=== PATIENT | female | born 1945 | race Caucasian/White ===

== ENCOUNTER 2023-07-17 15:19 | Inpatient (IN) | payer MEDICARE ==
[~2023-07-17] VITALS: Ht 167.6 cm; Wt 65.1 kg
--- NOTE | 2023-07-17 17:23 | NUR ---
pt alert and oriented, able to make needs known. Ventilating well on RA. Denies pain. Aware of hospital admission.
--- NOTE | 2023-07-17 17:36 | NUR ---
Med rec complete, pt does not take any home medications.
[2023-07-17 17:37] LABS: BASOPHILS % (AUTO) 0.2 % (0-1); EOSINOPHILS # (AUTO) 0.1 X10'3 (0-0.9); EOSINOPHILS % (AUTO) 0.6 % (0-6); HEMATOCRIT 34.6 % (35.0-45.0); HEMOGLOBIN 11.7 g/dl (12.0-16.0); LYMPHOCYTES # (AUTO) 0.6 X10'3 (1.1-4.8); MEAN CORPUSCULAR HEMOGLOBIN 31.5 PG (27.0-31.0); MEAN CORPUSCULAR HGB CONC 33.9 g/dL (33.0-36.5); MEAN CORPUSCULAR VOLUME 92.8 FL (78-98); MEAN PLATELET VOLUME 8.5 FL (7.4-10.4); MONOCYTES # (AUTO) 0.4 X10'3 (0-0.9); MONOCYTES % (AUTO) 3.7 % (2-12); NEUTROPHILS # (AUTO) 8.4 X10'3 (1.8-7.7); NEUTROPHILS % (AUTO) 89.5 % (42-75); PLATELET COUNT 218 X10'3 (140-440); RED BLOOD COUNT 3.73 X10'6 (4.20-5.60); WHITE BLOOD COUNT 9.4 X10'3 (4.5-11.0)
[2023-07-17 17:39] LABS: ALANINE AMINOTRANSFERASE 14 U/L (12-78); ALBUMIN/GLOBULIN RATIO 1.2 (1.1-1.5); ALKALINE PHOSPHATASE 61 IU/L (46-116); ANION GAP 8 (8-16); ASPARTATE AMINO TRANSFERASE 21 U/L (10-37); BILIRUBIN,TOTAL 0.5 MG/DL (0.1-1.0); BLOOD UREA NITROGEN 22 MG/DL (7-18); CALCIUM 9.1 MG/DL (8.5-10.1); CHLORIDE 101 MMOL/L (99-107); CREATININE 0.88 MG/DL (0.40-0.90); GLUCOSE 119 MG/DL (70-104); POTASSIUM 3.8 MMOL/L (3.5-5.1); SODIUM 135 MMOL/L (135-145); TOTAL CARBON DIOXIDE 26.2 MMOL/L (24-32); TOTAL PROTEIN 7.4 G/DL (6.4-8.2); eCRCL 45 ML/MIN; eGFR 62 ML/MIN
[2023-07-17 17:42] LABS: MAGNESIUM 1.9 MG/DL (1.5-2.4)
[2023-07-17] MEDS ORDERED: magnesium 4gm in 100ml NS 100 ML IV PRN (17:55)
[2023-07-17] MEDS ORDERED: potassium Cl 20 mEq SR tablet PO PRN ×2 (17:55)
[2023-07-17] MEDS ORDERED: HYDROcodone/acetaminophen 5mg/325mg tablet PO PRN (17:55)
[2023-07-17] MEDS ORDERED: magnesium Cl slow-release 64mg tablet PO PRN (17:55)
[2023-07-17] MEDS ORDERED: potassium Cl 40MEQ/1/2NS 520ml 520 ML IV PRN (17:55)
[2023-07-17] MEDS ORDERED: acetaminophen 325mg tablet PO PRN ×2 (17:55)
[2023-07-17] MEDS ORDERED: ondansetron/PF 4mg/2ml inj IV PRN (17:55)
[2023-07-17] MEDS ORDERED: magnesium 2GM in 50ml NS 50 ML IV PRN (17:55)
[2023-07-17] MEDS ORDERED: lisinopril 10 MG tablet PO ONE (17:55)
[2023-07-17] MEDS ORDERED: morphine 2 MG/ML inj. syringe IV PRN (17:55)
[2023-07-17] MEDS ORDERED: HYDROcodone/acetaminophen 10/325mg tab PO PRN (17:55)
[2023-07-17 18:01] LABS: APTT 30 SECONDS (22-32); PROTHROMBIN TIME 10.9 SECONDS (9.0-12.0)
[2023-07-17] MEDS ORDERED: lisinopril 5mg tablet PO ONE (18:05)
[2023-07-17] MEDS: normal saline 1000ml 1,000 ML IV SCH (18:08)
[2023-07-17] MEDS ORDERED: NO HOME MEDS (18:34)
[2023-07-17] MEDS: enoxaparin 40mg/0.4ml syringe SQ SCH (19:57)
[2023-07-17] MEDS ORDERED: temazepam 15mg capsule PO PRN (21:00)
--- NOTE | 2023-07-18 00:13 | NUR ---
patient placed on hospital bed for comfort.
[2023-07-18] MEDS: morphine 2 MG/ML inj. syringe IV PRN ×3 (00:19→16:44)
--- NOTE | 2023-07-18 01:30 | NUR ---
Patient in room ORTHO 4020. I have received report from VERONICA Cruz RN and had the opportunity to ask questions and assume patient care.
--- NOTE | 2023-07-18 01:45 | NUR ---
pt brought to floor via hospital bed accompanied by er staff. oriented pt to room and call light and educated pt to use call light when needing to use restroom or for other needs.
[2023-07-18 01:59] VITALS: BP 108/55; PULSE 79; RESP 15; TEMP 98.5; O2SAT 97
[2023-07-18 06:00] VITALS: BP 101/62; PULSE 75; RESP 16; TEMP 98.4; O2SAT 98
[2023-07-18 06:37] LABS: BASOPHILS % (AUTO) 0.5 % (0-1); EOSINOPHILS # (AUTO) 0.2 X10'3 (0-0.9); EOSINOPHILS % (AUTO) 3.1 % (0-6); HEMATOCRIT 29.7 % (35.0-45.0); HEMOGLOBIN 10.1 g/dl (12.0-16.0); LYMPHOCYTES # (AUTO) 0.9 X10'3 (1.1-4.8); LYMPHOCYTES % (AUTO) 14.6 % (21-51); MEAN CORPUSCULAR HEMOGLOBIN 31.6 PG (27.0-31.0); MEAN CORPUSCULAR HGB CONC 33.9 g/dL (33.0-36.5); MEAN PLATELET VOLUME 9.2 FL (7.4-10.4); MONOCYTES # (AUTO) 0.6 X10'3 (0-0.9); MONOCYTES % (AUTO) 9.4 % (2-12); NEUTROPHILS # (AUTO) 4.3 X10'3 (1.8-7.7); NEUTROPHILS % (AUTO) 72.4 % (42-75); PLATELET COUNT 203 X10'3 (140-440); RED BLOOD COUNT 3.19 X10'6 (4.20-5.60); RED CELL DISTRIBUTION WIDTH 13.7 % (11.5-14.5)
[2023-07-18 06:38] LABS: ALANINE AMINOTRANSFERASE 14 U/L (12-78); ALBUMIN 3.4 G/DL (3.4-5.0); ALBUMIN/GLOBULIN RATIO 1.2 (1.1-1.5); ALKALINE PHOSPHATASE 50 IU/L (46-116); ANION GAP 9 (8-16); ASPARTATE AMINO TRANSFERASE 18 U/L (10-37); BILIRUBIN,TOTAL 0.8 MG/DL (0.1-1.0); BLOOD UREA NITROGEN 19 MG/DL (7-18); BUN/CREATININE RATIO 22.9 (10.0-20.0); CALCIUM 8.4 MG/DL (8.5-10.1); CHLORIDE 103 MMOL/L (99-107); CREATININE 0.83 MG/DL (0.40-0.90); GLUCOSE 107 MG/DL (70-104); POTASSIUM 3.4 MMOL/L (3.5-5.1); SODIUM 137 MMOL/L (135-145); TOTAL CARBON DIOXIDE 25.5 MMOL/L (24-32); TOTAL PROTEIN 6.3 G/DL (6.4-8.2); eCRCL 48 ML/MIN; eGFR 66 ML/MIN
--- NOTE | 2023-07-18 06:48 | NUR ---
Problems reprioritized. Patient report given, questions answered & plan of care reviewed with MALKA Jackson.
[2023-07-18 08:00] VITALS: RESP 15; O2SAT 97
--- NOTE | 2023-07-18 10:40 | NUR ---
PAGER ID: [phone] MESSAGE: Chelo Joritj [id number] Pt. states pain is not controlled for her leg fracture. Can she have .5-1mg dilaudid instead of MS? Renetta [id number]
[2023-07-18] MEDS ORDERED: morphine 2 MG/ML inj. syringe IV PRN ×2 (11:05→11:55)
[2023-07-18] MEDS ORDERED: HYDROcodone/acetaminophen 5mg/325mg tablet PO PRN (11:05)
[2023-07-18] MEDS ORDERED: hydrALAZINE 20mg/ml inj. IV PRN (11:55)
[2023-07-18] MEDS ORDERED: enalaprilat dihydrate 2.5mg/2ml vial IV PRN (11:55)
[2023-07-18] MEDS ORDERED: ringers solution, lacted 1,000 ML IV ONE (11:55)
[2023-07-18] MEDS ORDERED: fentaNYL/PF 50MCG/1 ML 2ML syringe IV PRN ×2 (11:55)
[2023-07-18] MEDS ORDERED: morphine 4 MG/ML inj SYRINge IV PRN (11:55)
[2023-07-18] MEDS ORDERED: ondansetron/PF 4mg/2ml inj IV PRN (11:55)
[2023-07-18] MEDS ORDERED: ringers solution, lacted 1,000 ML IV SCH (11:55)
[2023-07-18] MEDS: HYDROcodone/acetaminophen 10/325mg tab PO PRN (12:23)
--- NOTE | 2023-07-18 12:31 | NUR ---
Paged for ekg
[2023-07-18] MEDS ORDERED: magnesium Cl slow-release 64mg tablet PO PRN (12:45)
[2023-07-18] MEDS ORDERED: potassium Cl 20 mEq SR tablet PO PRN ×2 (12:45)
[2023-07-18] MEDS ORDERED: potassium Cl 40MEQ/1/2NS 520ml 520 ML IV PRN (12:45)
--- NOTE | 2023-07-18 14:03 | NUR ---
Updated son. He would like update after surgery as well.
[2023-07-18 14:27] LABS: MAGNESIUM 1.9 MG/DL (1.5-2.4)
--- NOTE | 2023-07-18 18:07 | NUR ---
Gave report to Geo ACE
[2023-07-18 18:30] VITALS: BP 137/81; PULSE 72; RESP 16; TEMP 98.5; O2SAT 96
[2023-07-18 18:40] VITALS: RESP 16; O2SAT 96
[2023-07-18] MEDS: K and/or MAG REPLACEMENT MC SCH (20:00)
[2023-07-18] MEDS: enoxaparin 40mg/0.4ml syringe SQ SCH (20:11)
[2023-07-18] MEDS: normal saline 1000ml 1,000 ML IV SCH (22:46)
[2023-07-19] VITALS (29 sets, daily range): BP systolic 105–177; BP diastolic 46–93; PULSE 83–98; RESP 14–21; TEMP 97.3–98.8; O2SAT 93–100
[2023-07-19] MEDS: normal saline 1000ml 1,000 ML IV SCH ×3 (00:10→20:45)
[2023-07-19] MEDS: morphine 2 MG/ML inj. syringe IV PRN (04:26)
[2023-07-19] MEDS ORDERED: morphine 2 MG/ML inj. syringe IV ONE (04:45)
[2023-07-19] MEDS ORDERED: famotidine 20mg tablet PO ONE (06:00)
--- NOTE | 2023-07-19 06:24 | NUR ---
Problems reprioritized. Patient report given, questions answered & plan of care reviewed with IRINEO. Addendum: 07/19/23 at 0624 by Maik Ho RN Amended: Links added.
[2023-07-19 07:21] LABS: BASOPHILS % (AUTO) 0.3 % (0-1); EOSINOPHILS % (AUTO) 0.5 % (0-6); HEMOGLOBIN 9.7 g/dl (12.0-16.0); LYMPHOCYTES # (AUTO) 0.7 X10'3 (1.1-4.8); LYMPHOCYTES % (AUTO) 9.5 % (21-51); MEAN CORPUSCULAR HEMOGLOBIN 31.3 PG (27.0-31.0); MEAN CORPUSCULAR HGB CONC 33.4 g/dL (33.0-36.5); MEAN CORPUSCULAR VOLUME 93.7 FL (78-98); MEAN PLATELET VOLUME 8.5 FL (7.4-10.4); MONOCYTES # (AUTO) 0.8 X10'3 (0-0.9); MONOCYTES % (AUTO) 10.9 % (2-12); NEUTROPHILS # (AUTO) 5.8 X10'3 (1.8-7.7); NEUTROPHILS % (AUTO) 78.8 % (42-75); PLATELET COUNT 193 X10'3 (140-440); RED CELL DISTRIBUTION WIDTH 13.4 % (11.5-14.5); WHITE BLOOD COUNT 7.3 X10'3 (4.5-11.0)
[2023-07-19 07:37] LABS: ALANINE AMINOTRANSFERASE 13 U/L (12-78); ALBUMIN 3.1 G/DL (3.4-5.0); ALBUMIN/GLOBULIN RATIO 0.9 (1.1-1.5); ALKALINE PHOSPHATASE 49 IU/L (46-116); ANION GAP 6 (8-16); ASPARTATE AMINO TRANSFERASE 21 U/L (10-37); BLOOD UREA NITROGEN 12 MG/DL (7-18); BUN/CREATININE RATIO 18.2 (10.0-20.0); CALCIUM 8.3 MG/DL (8.5-10.1); CHLORIDE 100 MMOL/L (99-107); CREATININE 0.66 MG/DL (0.40-0.90); GLUCOSE 118 MG/DL (70-104); MAGNESIUM 1.7 MG/DL (1.5-2.4); POTASSIUM 3.9 MMOL/L (3.5-5.1); SODIUM 131 MMOL/L (135-145); TOTAL CARBON DIOXIDE 25.3 MMOL/L (24-32); TOTAL PROTEIN 6.4 G/DL (6.4-8.2); eCRCL 64 ML/MIN; eGFR 86 ML/MIN
[2023-07-19] MEDS: K and/or MAG REPLACEMENT MC SCH ×2 (08:00→20:00)
[2023-07-19] MEDS ORDERED: ePHEDrine 50MG/ML INJ. ONE (10:38)
[2023-07-19] MEDS ORDERED: fentaNYL/PF 50MCG/1 ML 2ML syringe ONE (10:40)
[2023-07-19] MEDS ORDERED: ringers solution, lacted 1,000 ML IV SCH (10:40)
[2023-07-19] MEDS ORDERED: proCHLORperazine 10 MG/2 ml inj IV PRN (10:40)
[2023-07-19] MEDS ORDERED: morphine 4 MG/ML inj SYRINge IV PRN (10:40)
[2023-07-19] MEDS ORDERED: ondansetron/PF 4mg/2ml inj IV PRN (10:40)
[2023-07-19] MEDS ORDERED: meperidine/PF 25mg/ml syringe IV PRN ×3 (10:40)
[2023-07-19] MEDS ORDERED: morphine 2 MG/ML inj. syringe IV PRN (10:40)
[2023-07-19] MEDS ORDERED: midazolam 1 mg/ML 2ml injection ONE (10:40)
[2023-07-19] MEDS ORDERED: ceFAZolin 1000mg inj ONE ×2 (11:00)
--- NOTE | 2023-07-19 11:53 | NUR ---
Received from OR via ORTHO BED , accompanied by Anesthesiologist DONNA and report given by Anesthesiolgist. PATIENT WITH 20G PIV IN LEFT FOREARM RUNNING LR AT 100. PATIENT VSS. DENIES PAIN AT THIS TIME. PATIENT WITH SCDS ON AND PATIENT WITHOUT COMPLIAINT AT THIS TIME. WILL CONTINUE TO ASSESS AND TREAT NEEDED. Addendum: 07/19/23 at 1255 by Giovani Barry RN, RN Amended: Links added.
--- NOTE | 2023-07-19 13:53 | NUR ---
Report called to receiving nurse. PT REMAINS COMFORTABLE, TOLERATING ORAL FLUIDS AND ICE CHIPS. Transferred via BED, NO Belongings. BLL, CALL LIGHT GIVEN, SIDE RAILS UP, NURSES AID IN ROOM W/PT. Special Issues communicated to receiving nurse. YES. Addendum: 07/19/23 at 1450 by Jayshree Hayward RN Amended: Links added.
[2023-07-19] MEDS: ceFAZolin/D5W- 1GM premix 50 ML IV SCH (15:35)
--- NOTE | 2023-07-19 18:26 | NUR ---
Problems reprioritized. Patient report given, questions answered & plan of care reviewed with Jazz ACE.
[2023-07-19] MEDS: enoxaparin 40mg/0.4ml syringe SQ SCH (20:29)
[2023-07-19] MEDS: HYDROcodone/acetaminophen 10/325mg tab PO PRN (20:30)
[2023-07-20] MEDS: ceFAZolin/D5W- 1GM premix 50 ML IV SCH ×2 (00:33→07:09)
[2023-07-20 02:00] VITALS: BP 134/66; PULSE 88; RESP 14; TEMP 97.6; O2SAT 99
[2023-07-20 06:00] VITALS: BP 153/73; PULSE 88; RESP 14; TEMP 97.1; O2SAT 99
--- NOTE | 2023-07-20 06:45 | NUR ---
Problems reprioritized. Patient report given, questions answered & plan of care reviewed with LAVERNE Medina.
[2023-07-20] MEDS: normal saline 1000ml 1,000 ML IV SCH (07:13)
[2023-07-20 07:18] LABS: BASOPHILS % (AUTO) 0.1 % (0-1); EOSINOPHILS % (AUTO) 0 % (0-6); HEMATOCRIT 26.6 % (35.0-45.0); LYMPHOCYTES # (AUTO) 0.6 X10'3 (1.1-4.8); LYMPHOCYTES % (AUTO) 5.9 % (21-51); MEAN CORPUSCULAR HEMOGLOBIN 31.3 PG (27.0-31.0); MEAN CORPUSCULAR HGB CONC 33.7 g/dL (33.0-36.5); MEAN CORPUSCULAR VOLUME 92.7 FL (78-98); MEAN PLATELET VOLUME 8.6 FL (7.4-10.4); MONOCYTES % (AUTO) 10.4 % (2-12); NEUTROPHILS # (AUTO) 8.1 X10'3 (1.8-7.7); NEUTROPHILS % (AUTO) 83.6 % (42-75); PLATELET COUNT 198 X10'3 (140-440); RED BLOOD COUNT 2.87 X10'6 (4.20-5.60); RED CELL DISTRIBUTION WIDTH 13.1 % (11.5-14.5); WHITE BLOOD COUNT 9.7 X10'3 (4.5-11.0)
[2023-07-20] MEDS: HYDROcodone/acetaminophen 10/325mg tab PO PRN ×2 (07:30→15:38)
[2023-07-20 07:42] LABS: ALANINE AMINOTRANSFERASE 15 U/L (12-78); ALBUMIN 2.6 G/DL (3.4-5.0); ALBUMIN/GLOBULIN RATIO 0.7 (1.1-1.5); ALKALINE PHOSPHATASE 48 IU/L (46-116); ANION GAP 8 (8-16); ASPARTATE AMINO TRANSFERASE 23 U/L (10-37); BILIRUBIN,TOTAL 0.7 MG/DL (0.1-1.0); BLOOD UREA NITROGEN 10 MG/DL (7-18); BUN/CREATININE RATIO 18.2 (10.0-20.0); CHLORIDE 98 MMOL/L (99-107); CREATININE 0.55 MG/DL (0.40-0.90); GLUCOSE 145 MG/DL (70-104); MAGNESIUM 1.7 MG/DL (1.5-2.4); POTASSIUM 3.4 MMOL/L (3.5-5.1); SODIUM 130 MMOL/L (135-145); TOTAL CARBON DIOXIDE 24.2 MMOL/L (24-32); TOTAL PROTEIN 6.1 G/DL (6.4-8.2); eCRCL 76 ML/MIN; eGFR > 90 ML/MIN
[2023-07-20] MEDS: K and/or MAG REPLACEMENT MC SCH (08:30)
[2023-07-20 10:00] VITALS: BP 134/83; PULSE 83; RESP 13; TEMP 98.1; O2SAT 97
--- NOTE | 2023-07-20 16:39 | NUR ---
Report called to [facility], questions answered.
--- NOTE | 2023-07-20 17:30 | NUR ---
Patient discharged patient to [facility] via [facility]. All personal belongings were sent with, piv was discontinued with tip intact, tolerated well. Pt alert and appropriate at the time of discharge.
== END 2023-07-20 17:32 | DRG 482 ==
LOC: ER 15:20 → ED HOLD 18:02 → EDBEDREQ 07-18 01:21 → ORTHO 4S 07-18 01:36
PROVIDERS: ADMIT Internal Medicine; ATTEND Internal Medicine
PROC: 0QS804Z Reposition Right Femoral Shaft with Internal Fixation Device, Open Approach (ICD-10-PCS; principal; 2023-07-19 10:38)
DX: S72.391A Other fracture of shaft of right femur, initial encounter for closed fracture (principal); Z66 Do not resuscitate; Z60.2 Problems related to living alone; M25.532 Pain in left wrist; D64.9 Anemia, unspecified; W18.39XA Other fall on same level, initial encounter; Y93.89 Activity, other specified; Y92.89 Other specified places as the place of occurrence of the external cause; Y99.8 Other external cause status
CPT/HCPCS: 36415; 71045; 73110; 73552; 73564; 76000; 80053; 82948; 83735; 84484; 85025; 85610; 85730; 86885; 86900; 86901; 87081; 93005; 97110; 97161; 97530; 99285; G0378; J0690; J1650; J2250; J2270; J2405; J3010; J3480; J3490; J7030; J7120